=== PATIENT | female | born 1945 | race Caucasian/White ===

== ENCOUNTER 2021-09-18 09:21 | Day surgery (SDC) | payer MEDICARE, OTHER ==
[2021-09-18] MEDS ORDERED: Midazolam 1 MG/ML 2 ML SDV IV ONE (09:22)
[2021-09-18] MEDS ORDERED: fentaNYL 100 MCG/2 ML SDV IV ONE (09:22)
[2021-09-18] MEDS ORDERED: Sodium Chloride 0.9% 10 ML Syringe FLUSH PRN (09:30)
[2021-09-18] MEDS ORDERED: Lactated Ringers 1,000 ML IV PRN (09:30)
[2021-09-18] MEDS ORDERED: acetaZOLAMIDE 500 MG Cap.ER PO ONE (11:30)
[2021-09-18 12:27] VITALS: BP 149/75; PULSE 54
== END 2021-09-18 12:10 | disposition home or self-care (01) ==
LOC: FB.SDS 09:21
PROVIDERS: ATTEND Ophthalmology
DX: H25.813 Combined forms of age-related cataract, bilateral (principal); H35.341 Macular cyst, hole, or pseudohole, right eye; H18.453 Nodular corneal degeneration, bilateral; H11.0 Pterygium of eye; H04.123 Dry eye syndrome of bilateral lacrimal glands; H52.223 Regular astigmatism, bilateral; E78.5 Hyperlipidemia, unspecified; E03.9 Hypothyroidism, unspecified; Z79.899 Other long term (current) drug therapy; Z79.890 Hormone replacement therapy; Z90.49 Acquired absence of other specified parts of digestive tract; Z98.890 Other specified postprocedural states; Z87.891 Personal history of nicotine dependence
CPT/HCPCS: A9270-GY; J2250; J3010; V2632

== ENCOUNTER 2021-10-02 09:57 | Day surgery (SDC) | payer MEDICARE, OTHER ==
[2021-10-02] MEDS ORDERED: fentaNYL 100 MCG/2 ML SDV IV ONE (09:58)
[2021-10-02] MEDS ORDERED: Midazolam 1 MG/ML 2 ML SDV IV ONE (09:58)
[2021-10-02] MEDS: Lactated Ringers 1,000 ML IV SCH (11:07)
[2021-10-02] MEDS: Sodium Chloride 0.9% 10 ML Syringe FLUSH PRN (11:07)
[2021-10-02] MEDS: acetaZOLAMIDE 500 MG Cap.ER PO ONE (12:02)
[2021-10-02 12:35] VITALS: BP 154/70; PULSE 54
== END 2021-10-02 12:20 | disposition home or self-care (01) ==
LOC: FB.SDS 09:57
PROVIDERS: ATTEND Ophthalmology
DX: H25.813 Combined forms of age-related cataract, bilateral (principal); H35.341 Macular cyst, hole, or pseudohole, right eye; E55.9 Vitamin D deficiency, unspecified; E03.9 Hypothyroidism, unspecified; Z88.8 Allergy status to other drugs, medicaments and biological substances; Z90.49 Acquired absence of other specified parts of digestive tract; Z87.891 Personal history of nicotine dependence; Z98.890 Other specified postprocedural states; Z79.890 Hormone replacement therapy
CPT/HCPCS: 00142-QZ; A9270-GY; J2250; J3010; J3490; J7120; V2632

== ENCOUNTER 2022-10-07 10:04 | Emergency (ER) | payer MEDICARE, OTHER ==
[2022-10-07 11:09] LABS: BILIRUBIN,URINE NEGATIVE (NEGATIVE); GLUCOSE,URINE NORMAL (NORMAL); KETONES,URINE NEGATIVE (NEGATIVE); LEUKOCYTE ESTERASE,URINE NEGATIVE (NEGATIVE); NITRITE,URINE NEGATIVE (NEGATIVE); OCCULT BLOOD,URINE NEGATIVE (NEGATIVE); PROTEIN,URINE NEGATIVE (NEGATIVE); UROBILINOGEN,URINE NORMAL (NEGATIVE)
[2022-10-07 11:10] LABS: APPEARANCE,URINE CLEAR (CLEAR); COLOR,URINE YELLOW (YELLOW); RBC,URINE 0-5 (0-5); SQUAMOUS EPITHELIAL CELLS,UR RARE (NS,R,O)
[2022-10-07 11:14] LABS: A/G RATIO 1.1; ALBUMIN 3.7 g/dL (3.2-4.6); BILIRUBIN TOTAL 0.8 mg/dL (0.1-1.3); CALCIUM 8.8 mg/dL (8.6-10.2); CARBON DIOXIDE,CO2 31 mmol/L (21-32); CHLORIDE,CL 105 mmol/L (100-110); CREATININE 0.8 mg/dL (0.55-1.02); EST CRCL DRUG DOSING (CG) 43.64 mL/min; ESTIMATED GFR 77 mL/min (>60); GLUCOSE RANDOM 104 mg/dL (80-116); POTASSIUM,K 3.6 mmol/L (3.5-5.3); PROTEIN TOTAL,TP 7.1 g/dL (6.0-8.0); SODIUM,NA 143 mmol/L (135-145)
[2022-10-07 11:15] LABS: ALANINE AMINOTRANSFERASE,ALT 25 U/L (12-36); ALKALINE PHOSPHATASE 84 IU/L (56-112); ASPARTATE AMNIOTRANSFERASE,AST 20 IU/L (5-25); BLOOD UREA NITROGEN,BUN 9 mg/dL (7-18); BUN/CREATININE RATIO 11.3 (9-20)
[2022-10-07 11:17] LABS: BASOPHILS PERCENT AUTO 0.7 % (0.2-1.5); EOSINOPHILS ABSOLUTE AUTO 0.2 x10-3/uL (0.0-0.8); EOSINOPHILS PERCENT AUTO 2.3 % (0.6-8.1); HEMATOCRIT 39.2 % (34.2-48.2); HEMOGLOBIN 13.3 g/dL (11.4-15.5); LYMPHOCYTES ABSOLUTE AUTO 1.3 x10-3/uL (1.0-4.4); LYMPHOCYTES PERCENT AUTO 18.4 % (18.4-52.1); MEAN CORPUSCULAR HEMOGLOBIN 31.7 pg (23.9-33.9); MEAN CORPUSCULAR VOLUME 93.2 fL (76.7-100.5); MEAN PLATELET VOLUME 8.8 fL (7.1-12.4); MONOCYTES ABSOLUTE AUTO 0.6 x10-3/uL (0.3-1.0); MONOCYTES PERCENT AUTO 8.3 % (4.4-15.7); NEUTROPHILS ABSOLUTE AUTO 5.1 x10-3/uL (1.5-6.3); NEUTROPHILS PERCENT AUTO 70.3 % (30.8-76.2); PLATELET COUNT,PLT 330 x10(3)uL (151-488); RED CELL DISTRIBUTION WIDTH 13.6 % (12.3-16.5); WHITE BLOOD CELL COUNT,WBC 7.3 x10-3/uL (3.0-10.3)
[2022-10-07 11:18] LABS: BACTERIA,URINE RARE (NS); WBC,URINE NOT SEEN (0-5)
[2022-10-07] MEDS ORDERED: Pantoprazole 40 MG Tab.CR PO ONE ×2 (12:43→13:00)
[2022-10-07 15:22] VITALS: BP 159/83; PULSE 64
== END 2022-10-07 13:30 | disposition home or self-care (01) ==
LOC: FB.ED 10:04
DX: K20.90 Esophagitis, unspecified without bleeding (principal); E66.9 Obesity, unspecified; Z68.37 Body mass index [BMI] 37.0-37.9, adult
CPT/HCPCS: 36415; 71046; 80053; 81001; 83880; 84484; 85025; 85379; 93005; 99284; A9270